=== PATIENT | female | born 2005 | race Caucasian/White ===

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

== ENCOUNTER 2024-03-09 11:00 | Emergency (ER) | payer OTHER, SELFPAY ==
[2024-03-09 11:40] VITALS: BP 122/71; PULSE 97; RESP 16; TEMP 36.4; O2SAT 100; BMI 25.7
--- NOTE | 2024-03-09 11:45 | ED.EXTPRO ---
HPI - Extremity Problem General Chief complaint: Extremity Injury, Upper Stated complaint: Right Pinky Work Injury 03/09/24 History of Present Illness HPI Narrative: Left without comletion of treatment by ED provider. Related Data Previous Rx's ?Medication ?Instructions ?Recorded albuterol sulfate 2.5 mg/3 mL 2.5 mg (3 mL) inhalation Q4-6H PRN 11/06/23 (0.083 %) solution for nebulization shortness of breath or wheezing #75 mL albuterol sulfate 90 mcg/actuation 2 puff inhalation 6XD PRN 11/06/23 aerosol inhaler bronchospasm #6.7 grams azithromycin 250 mg tablet See Rx Instructions PO .COMPLEX #6 11/06/23 tabs benzonatate 200 mg capsule 200 mg PO TID PRN cough 7 days #14 11/06/23 caps prednisone 10 mg tablet 10 mg PO DIRECTED See tapering 11/06/23 #14 tabs Allergies Allergy/AdvReac Type Severity Reaction Status Date / Time No Known Allergies Allergy Verified 03/09/24 11:44 Physical Exam Vital Signs: Vital Signs: Last Vital Signs Temp 97.6 F 03/09/24 11:40 Pulse 97 03/09/24 11:40 Resp 16 03/09/24 11:40 BP 122/71 03/09/24 11:40 Pulse Ox 100 03/09/24 11:40 O2 Del Method Room Air 03/09/24 11:40 BMI result Body Mass Index 25.7 Course Course Course Narrative: RME: Triage written by BREANNE Yao. Patient presents to the ED for right pinky nail almost coming off. ON exam nail and acrylic almost coming off. rest of extremity is normal. Patient states she was grabbing objects from the freezer and her know got caught. Patient to be evaluated in the [facility] Discharge Plan Discharge Clinical Impression: Nail avulsion, finger Patient Disposition: Left W/O Completing Treatment Prescriptions: No Action prednisone 10 mg tablet 10 mg PO DIRECTED Qty: 14 0RF Rx Instructions: see taper instructions Take 4 tablets day 1 and day 2, take 2 tablets day 3 and day 4, take 1 tablet day 5 and day 6 benzonatate 200 mg capsule 200 mg PO TID PRN (Reason: cough) 7 Days Qty: 14 0RF azithromycin 250 mg tablet See Rx Instructions PO .COMPLEX Qty: 6 0RF Rx Instructions: For 250 mg dose pack: take 500 mg today (day 1), then 250 mg for 4 days (days 2-5) albuterol sulfate 90 mcg/actuation HFA aerosol inhaler 2 puff inhalation 6XD PRN (Reason: bronchospasm) Qty: 6.7 0RF albuterol sulfate 2.5 mg /3 mL (0.083 %) solution for nebulization 2.5 mg inhalation Q4-6H PRN (Reason: shortness of breath or wheezing) Qty: 75 0RF Discharge Date/Time: 03/09/24 14:05
== END 2024-03-09 14:05 | disposition left against medical advice (07) ==
LOC: HO.ED 13:05
PROVIDERS: Emergency Provider Emergency Medicine
DX: S69.81XA Other specified injuries of right wrist, hand and finger(s), initial encounter (principal); S69.82XA Other specified injuries of left wrist, hand and finger(s), initial encounter; W23.1XXA Caught, crushed, jammed, or pinched between stationary objects, initial encounter; Y93.89 Activity, other specified; Y92.9 Unspecified place or not applicable; Y99.0 Civilian activity done for income or pay; Z53.21 Procedure and treatment not carried out due to patient leaving prior to being seen by health care provider
CPT/HCPCS: 99281

== ENCOUNTER → 2024-03-09 14:04 | Outpatient (BNVA) | payer OTHER, SELFPAY | PROVIDERS: Visit Provider Physician Assistant Medical | DX: S61.316A Laceration without foreign body of right little finger with damage to nail, initial encounter (principal); X50.3XXA Overexertion from repetitive movements, initial encounter | CPT/HCPCS: 11730; 99202 ==

== ENCOUNTER → 2024-03-11 14:42 | Outpatient (BNVA) | payer OTHER, SELFPAY | PROVIDERS: Visit Provider Physician Assistant Medical | DX: S61.316A Laceration without foreign body of right little finger with damage to nail, initial encounter (principal); X50.3XXA Overexertion from repetitive movements, initial encounter | CPT/HCPCS: 99213 ==

== ENCOUNTER 2024-03-24 22:21 | Emergency (ER) | payer OTHER, SELFPAY ==
[2024-03-24 22:29] VITALS: BP 121/76; PULSE 76; RESP 16; TEMP 36.9; O2SAT 98; BMI 25.7
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
[2024-03-25] MEDS: Ibuprofen 600 MG TABLET PO (00:19)
[2024-03-25 00:30] VITALS: BP 116/62; PULSE 68; RESP 16; TEMP 36.9; O2SAT 98
== END 2024-03-25 00:31 | disposition home or self-care (01) ==
PROVIDERS: Emergency Provider Internal Medicine
DX: S29.012A Strain of muscle and tendon of back wall of thorax, initial encounter (principal); V43.62XA Car passenger injured in collision with other type car in traffic accident, initial encounter; Y93.9 Activity, unspecified; Y92.488 Other paved roadways as the place of occurrence of the external cause; Y99.9 Unspecified external cause status
CPT/HCPCS: 99283

== ENCOUNTER 2024-08-05 14:32 | Emergency (ER) | payer OTHER, SELFPAY ==
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
[2024-08-05 14:36] VITALS: BP 119/68; PULSE 66; RESP 20; TEMP 36.4; O2SAT 100; BMI 23.2
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
[2024-08-05] MEDS: Lidocaine 4 % Patch ADH..PATCH 1 PATCH TRANSDERMA (16:31)
[2024-08-05 16:42] VITALS: BP 108/55; PULSE 57; RESP 16; O2SAT 100
[2024-08-05] MEDS: Acetaminophen 325 MG TABLET 975 MG PO (16:47)
[2024-08-05 17:01] VITALS: BP 108/55; PULSE 57; RESP 18; TEMP 36.4; O2SAT 100
== END 2024-08-05 17:01 | disposition home or self-care (01) ==
PROVIDERS: Emergency Provider Internal Medicine; PCP Internal Medicine
DX: S29.9XXA Unspecified injury of thorax, initial encounter (principal); V43.52XA Car driver injured in collision with other type car in traffic accident, initial encounter; Y93.89 Activity, other specified; Y92.488 Other paved roadways as the place of occurrence of the external cause; Y99.8 Other external cause status; Z79.899 Other long term (current) drug therapy
CPT/HCPCS: 72070; 99283

== ENCOUNTER 2024-09-05 06:21 | Emergency (ER) | payer OTHER, SELFPAY ==
--- NOTE | ~2024-09-05 | XR_ITS ---
EXAMINATION: XR CHEST CLINICAL INFORMATION: Dyspnea COMPARISON: None available. TECHNIQUE: 2 views of the chest were obtained. FINDINGS: Bilateral perihilar prominence with bronchial thickening may reflect infectious/inflammatory etiology though lymphadenopathy in this region is not excluded. No pneumothorax. Trachea is midline. Cardiac mediastinal silhouette is not enlarged. No large pleural effusion. Osseous structures are intact. Soft tissues are unremarkable. XR/XR chest 2V IMPRESSION: Bilateral perihilar prominence with bronchial thickening may reflect infectious/inflammatory etiology though lymphadenopathy in this region is not excluded. Electronically signed by: Dee Fay MD 09/05/2024 07:17 AM EST
[2024-09-05 06:23] VITALS: BP 127/77; PULSE 117; RESP 26; TEMP 36.2; O2SAT 99; BMI 27.8
[2024-09-05 07:03] LABS: MANUAL DIFF FLAG NO
[2024-09-05 07:06] LABS: Basophils Absolute Auto 0.1 X10*3/uL (0.0-0.2); Basophils Percent Auto 0.6 % (0-2); Eosinophils Percent Auto 10.7 % (0-4); Hematocrit 33.7 % (37.0-47.0); Hemoglobin 11.1 g/dl (12.0-16.0); Imm Gran Abs Auto 0.01 X10*3/uL (0.00-0.03); Imm Gran Pct Auto 0.1 % (0.0-0.4); Lymphocytes Absolute Auto 2.8 X10*3/uL (1.2-4.9); Lymphocytes Percent Auto 30.4 % (20-40); Mean Corpuscular HGB Conc 32.9 g/dl (31.0-35.0); Mean Corpuscular Hemoglobin 26.1 pg (27.0-33.0); Mean Corpuscular Volume 79.1 fL (80.0-98.0); Mean Platelet Volume 9.4 fL (9.4-12.3); Monocytes Absolute Auto 0.6 X10*3/uL (0.1-1.2); Monocytes Percent Auto 6.2 % (2-11); Neutrophils Absolute Auto 4.8 x10*3/uL (2.0-8.3); Platelet Count 386 X10*3/uL (160-400); Red Blood Count 4.26 X10*6/uL (4.20-5.50); Red Cell Distribution Width 15.5 % (11.0-16.0); White Blood Count 9.3 X10*3/uL (4.8-10.8)
[2024-09-05] MEDS: methylPREDNISolone Sod Succ 125 MG/2 ML VIAL 60 MG IM (07:21)
--- NOTE | 2024-09-05 07:21 | ED_ITS ---
HPI - SOB/Dyspnea General Chief Complaint: Dyspnea Stated Complaint: SOB Time Seen by Provider: 09/05/24 07:07 Source: patient, RN notes reviewed and old records reviewed Mode of arrival: ambulatory History of Present Illness ED Provider: Odalys Dubon PA-C HPI Narrative: 19-year-old female with past medical history of asthma presenting to the ED complaining of dry cough, SOB, chest tightness x1 week. Has been using albuterol inhaler and nebulizer for 1 week without relief. Also admits to taking 2 days' worth of Prednisone, from left over prescription, 5mg. Admits works in [employer], multiple sick contacts Denies fever, travel, abdominal pain, nausea/vomiting, pedal edema. Related Data Previous Rx's ?Medication ?Instructions ?Recorded albuterol sulfate 2.5 mg/0.5 mL 5 mg inhalation Q4H PRN shortness 09/05/24 solution for nebulization of breath or wheezing #30 ea albuterol sulfate 90 mcg/actuation 2 puff inhalation Q4-6H PRN 09/05/24 aerosol inhaler shortness of breath or wheezing #6.7 grams azithromycin 250 mg tablet See Rx Instructions PO .COMPLEX #6 09/05/24 tabs prednisone 20 mg tablet 40 mg (2 x 20 mg) PO DAILY 5 days 09/05/24 #10 tabs Allergies Allergy/AdvReac Type Severity Reaction Status Date / Time No Known Allergies Allergy Verified 09/05/24 06:25 Review of Systems 2 Review of Systems: Yes all other systems are reviewed and are negative Constitutional: Constitutional: Reports as per [facility] Past Medical History Attestation statement: The following information was validated with the patient. Source: old records reviewed Social History Social History Smoked in Last 30 Days: No Use of substances other than those prescribed or required for medical reasons: No Advance Directives: No Advance Directives Information Provided: No Do you have a plan to hurt others: No Plan Patient : No Physical Exam 2 Vital Signs: Vital Signs: Last Vital Signs Temp 97.1 F 09/05/24 06:23 Pulse 77 09/05/24 07:27 Resp 17 09/05/24 07:27 BP 127/77 09/05/24 06:23 Pulse Ox 99 09/05/24 06:23 O2 Del Method Room Air 09/05/24 06:23 BMI result Body Mass Index 27.8 Const: General: cooperative, healthy appearing and no acute distress O rientation/consciousness: patient oriented x3 Limitations: no limitations HEENT: Head: Yes normal to inspection and Yes atraumatic Ears: hearing grossly normal bilaterally General nose exam: Normal external nose present Face and sinus: Yes normal facial exam Eyes: General: appearance normal, both eyes and all related structures EOM: EOMs intact bilaterally Neck: Neck: Yes normal visual inspection and Yes no meningeal signs Resp: Effort & Inspection: normal respiratory effort and no respiratory distress Auscultation: wheezes expiratory wheezes and throughout Cardio: Rate: regular rate and tachycardic Heart sounds: S1 normal heart sound present and S2 normal heart sound present Skin: Rashes: no rashes Wounds: no wounds Neuro: General: patient oriented x3, tone normal and no meningeal signs C ranial nerves: Yes CN's II-XII intact bilaterally Gait exam (Neuro): Normal gait present Extrem: General: Yes normal to inspection and Yes no pedal edema Course Course Course Narrative: > patient refused IV Solu-Medrol, given IM -0808--labs reassuring. COVID and influenza negative XR chest 2V IMPRESSION: Bilateral perihilar prominence with bronchial thickening may reflect infectious/inflammatory etiology though lymphadenopathy in this region is not excluded. > 0811--on re-evaluation patient reports symptomatic improvement. Lungs CTA. Patient is stable for discharge home at this time Results discussed with patient including worrisome signs and symptoms and strict return precautions, and when to return to the emergency department. They verbalized understanding and feel safe for discharge at this time. Medications Administered Discontinued Medications Generic Name Dose Route Start Last Admin Trade Name Freq PRN Reason Stop Dose Admin Albuterol Sulfate 2.5 mg/ 0 mg 09/05/24 07:27 09/05/24 07:31 Albuterol/Ipratropium 3 ml INHALE 09/05/24 07:28 5 dose ONCE ONE Administration Methylprednisolone Sodium Succinate 60 mg 09/05/24 07:17 09/05/24 07:21 Methylprednisolone Sod Succ 125 Mg/2 Ml Vial IM 09/05/24 07:18 60 mg ONCE ONE Administration Medical Decision Making Medical Decision Making [facility] Narrative: 19-year-old female with past medical history of asthma presenting to the ED complaining of dry cough, SOB, chest tightness x1 week. On exam tachycardic likely from albuterol use [employer], tachypneic, diffuse expiratory wheeze noted, no pedal edema. Concern for asthma exacerbation vs viral illness vs pneumonia/bronchitis. Lower suspicion for ACS/PE or DVT Plan: Labs, viral testing, CXR, ED brown protocol, IV Solu-Medrol Please refer to course for remaining clinical decision making, interpretation of labs/imaging results, and discussions with consultants and/or family members. Differential Diagnosis Differential Diagnoses: The differential diagnosis associated with the presentation includes As above Admission/Observation Consideration of admission/observation: Escalation of care including admission/observation considered Lab Data MDM Lab Attestation statement: I reviewed the patient's lab results. 09/05/24 06:57 09/05/24 06:57 Labs: Lab Results 09/05/24 Range/Units 06:57 WBC 9.3 (4.8-10.8) X10*3/uL RBC 4.26 (4.20-5.50) X10*6/uL Hgb 11.1 L (12.0-16.0) g/dl Hct 33.7 L (37.0-47.0) % MCV 79.1 L (80.0-98.0) fL MCH 26.1 L (27.0-33.0) pg MCHC 32.9 (31.0-35.0) g/dl RDW 15.5 (11.0-16.0) % Plt Count 386 (160-400) X10*3/uL MPV 9.4 (9.4-12.3) fL Immature Gran % (Auto) 0.1 (0.0-0.4) % Neut % (Auto) 52.0 (45-73) % Lymph % (Auto) 30.4 (20-40) % [place] % (Auto) 6.2 (2-11) % Eos % (Auto) 10.7 H (0-4) % Baso % (Auto) 0.6 (0-2) % Lymph # (Auto) 2.8 (1.2-4.9) X10*3/uL [place] # (Auto) 0.6 (0.1-1.2) X10*3/uL Eos # (Auto) 1.0 H (0.0-0.4) X10*3/uL Baso # (Auto) 0.1 (0.0-0.2) X10*3/uL Abs Immat Gran (auto) 0.01 (0.00-0.03) X10*3/uL Absolute Neuts (auto) 4.8 (2.0-8.3) x10*3/uL Absolute Nucleated RBC 0.000 (0.0-0.012) X10*3/uL Nucleated RBC % (auto) 0.0 (0.0-0.2) /100WBC Sodium 140 (135-145) mmol/L Potassium 3.6 (3.3-5.1) mmol/L Chloride 108 (96-108) mmol/L Carbon Dioxide 22 (22-29) mmol/L Anion Gap 14 (12-20) BUN 8 L (9-16) mg/dL Creatinine 0.70 (0.5-1.4) mg/dL Estim Creat Clear Calc 112.0 Estimated GFR > 60 Random Glucose 93 (60-115) mg/dL Calcium 9.1 (8.4-10.2) mg/dL Total Bilirubin 0.5 (0.0-1.0) mg/dL AST 16 (5-31) U/L ALT 9 (0-31) U/L Alkaline Phosphatase 58 (39-117) U/L Total Protein 6.9 (6.5-8.0) g/dL Albumin 3.8 (3.5-5.0) g/dL COVID-19 (RAFIQ) Negative (Negative) COVID-19 Clin Com See Note Influenza Type A (SUNNY) Negative (Negative) Influenza Type B (SUNNY) Negative (Negative) Influenza A & B Note See Note Independent Interpretation I performed an independent interpretation of an: Plain X-Ray Radiology Impression Discussion of test interpretation with radiology: I have reviewed the radiologist's reading. External Record Review External record reviewed: Inpatient record, Office record, Outpatient record, Prior outpatient labs, Prior outpatient radiology, Primary care record and Outside ED record Tests considered The following testing was considered but not selected: As above Prescription Management I considered prescription management with: Antibiotic and Other Chronic Conditions Patient?s care impacted by: Other (Asthma) Social Determinants Patient?s care significantly limited by Social Determinants of Health including: Other Social Determinant of Health Critical Care Time Critical Care Time Critical Care Time: Yes Total Critical Care Time: 40 Attestation: I have personally provided critical care time exclusive of time spent on separately billable procedures. Time includes review of lab data, radiology results, discussion with consultants, and monitoring for potential decompensation. Intervention performed as documented. Discharge Plan Discharge Clinical Impression: Asthma with exacerbation Patient Disposition: Home, Self-Care Instructions: Asthma (DC) Additional Instructions: Your blood work and viral testing was reassuring Your x-ray shows some bronchial wall thickening. Please take prednisone as prescribed until completion In addition azithromycin as an antibiotic Continue to use your inhaler and neb machine at home Follow up with her doctor If symptoms persist or worsen you constant worsening chest pain, shortness of breath or fever unresolved with Tylenol/Motrin return to the ED Prescriptions: New prednisone 20 mg tablet 40 mg PO DAILY 5 Days Qty: 10 0RF albuterol sulfate 90 mcg/actuation HFA aerosol inhaler 2 puff inhalation Q4-6H PRN (Reason: shortness of breath or wheezing) Qty: 6.7 0RF albuterol sulfate 2.5 mg/0.5 mL solution for nebulization 5 mg inhalation Q4H PRN (Reason: shortness of breath or wheezing) Qty: 30 0RF azithromycin 250 mg tablet See Rx Instructions .ROUTE .COMPLEX Qty: 6 0RF Rx Instructions: take 500 mg today (day 1), then 250 mg for 4 days (days 2-5) Referrals: Physician,Unknown J [Primary Care Provider] - 3 days Stand Alone Forms: Work/School Release Print Language: Hebrew
[2024-09-05 07:23] LABS: COVID-19 Test Negative (Negative); IDNOW Serial# 152EDE1D; IDNOW Serial# 58CA691E; Influenza A Negative (Negative); Influenza B2 Negative (Negative)
[2024-09-05 07:24] LABS: Alanine Aminotransferase 9 U/L (0-31); Albumin Level 3.8 g/dL (3.5-5.0); Alkaline Phosphatase 58 U/L (39-117); Anion Gap 14 (12-20); Aspartate Amino Transferase 16 U/L (5-31); Bilirubin Total 0.5 mg/dL (0.0-1.0); Blood Urea Nitrogen 8 mg/dL (9-16); Calcium 9.1 mg/dL (8.4-10.2); Carbon Dioxide 22 mmol/L (22-29); Chloride 108 mmol/L (96-108); Estimated Glomerular Filt Rate > 60; Glucose Random 93 mg/dL (60-115); Potassium 3.6 mmol/L (3.3-5.1); Sodium 140 mmol/L (135-145); Total Protein 6.9 g/dL (6.5-8.0)
[2024-09-05 07:27] VITALS: PULSE 77; RESP 17; O2SAT 96
[2024-09-05] MEDS: Albuterol Sulfate 2.5 MG, Albuterol/Iprat 2.5/0.5MG 3 ML 3 ML INHALE (07:31)
--- NOTE | 2024-09-05 07:32 | PC.NURSE ---
patient medicated per DEC, patient noted to have expiratory wheezing in the upper lobes
--- NOTE | 2024-09-05 08:12 | PC.NURSE ---
patient lungs clear bilat after medication and breathing treatment
[2024-09-05 08:52] VITALS: BP 122/86; PULSE 100; RESP 18; TEMP 36.1; O2SAT 99
[2024-09-05 08:54] VITALS: BP 122/86; PULSE 100; RESP 18; TEMP 36.1; O2SAT 99
== END 2024-09-05 08:54 | disposition home or self-care (01) ==
PROVIDERS: Emergency Provider Emergency Medicine
DX: J45.901 Unspecified asthma with (acute) exacerbation (principal); R06.00 Dyspnea, unspecified; R05.9 Cough, unspecified; R07.89 Other chest pain; Z11.52 Encounter for screening for COVID-19; Z79.899 Other long term (current) drug therapy
CPT/HCPCS: 36415; 71046; 80053; 85025; 87502; 87635; 94640; 99285; J2919

== ENCOUNTER 2024-09-13 09:43 | Emergency (ER) | payer OTHER, SELFPAY ==
--- NOTE | ~2024-09-13 | XR_ITS ---
EXAMINATION: XR CHEST CLINICAL INFORMATION: cough x 1 week COMPARISON: X-ray dated September 05, 2024 TECHNIQUE: 2 views of the chest were obtained. FINDINGS: No consolidation, pleural effusion or pneumothorax. Cardiomediastinal silhouette is normal in size. Osseous structures are intact. XR/XR chest 2V IMPRESSION: No acute airspace disease. Electronically signed by: Dhruv Luo MD 09/13/2024 01:39 PM [facility]
[2024-09-13 09:49] VITALS: BP 117/77; PULSE 110; RESP 14; TEMP 36.9; O2SAT 98; BMI 27.4
[2024-09-13 10:46] LABS: Influenza A PCR NEGATIVE (Negative); Influenza B PCR NEGATIVE (Negative); Resp Syncy Virus RNA Qual PCR NEGATIVE (Negative); SARS COV2 PCR INHOUSE NEGATIVE (Negative)
[2024-09-13 13:00] LABS: IDNOW Serial# 08D9AD1C; Strep A Nucleic Acid Negative (Negative)
--- NOTE | 2024-09-13 14:11 | ED.GENADULT ---
HPI - General Adult General Chief complaint: Upper Respiratory Symptoms Stated complaint: diff breathing Time Seen by Provider: 09/13/24 14:11 Source: patient Mode of arrival: ambulatory Limitations: no limitations History of Present Illness ED Provider: Tanya Juarez PA-C HPI narrative: Patient is a 19 year old assigned female at with a history of asthma presenting to the emergency department today with a persistent cough and wheezing. Patient states that she was seen here on 09/05/2024 for a cough and wheezing. Patient states that she was given prednisone and an antibiotic but the cough and wheezing continues even after finishing those things. Patient states that she continues to use her inhaler and nebulizer at home. Patient states that she does not have a continuing education instructor. Patient denies any dizziness, lightheadedness, abdominal pain, nausea, vomiting, fever, chills, blurry vision, double vision, loss of vision, chest pain, difficulty breathing, shortness of breath, back pain, night sweats, pain with urination, increased urinary frequency, increased urinary urgency, blood in her urine or stool, syncope or a near syncopal episode, recent trauma or falls, bowel incontinence, bladder incontinence, or any other complaints at this time. Relieving factors: none Exacerbating factors: none Associated symptoms: cough Treatments prior to arrival: none Related Data Previous Rx's ?Medication ?Instructions ?Recorded albuterol sulfate 2.5 mg/3 mL 2.5 mg (3 mL) inhalation Q4-6H PRN 11/06/23 (0.083 %) solution for nebulization shortness of breath or wheezing #75 mL albuterol sulfate 90 mcg/actuation 2 puff inhalation 6XD PRN 11/06/23 aerosol inhaler bronchospasm #6.7 grams azithromycin 250 mg tablet See Rx Instructions PO .COMPLEX #6 11/06/23 tabs benzonatate 200 mg capsule 200 mg PO TID PRN cough 7 days #14 11/06/23 caps prednisone 10 mg tablet 10 mg PO DIRECTED See tapering 11/06/23 #14 tabs ibuprofen 600 mg tablet 600 mg PO Q6H PRN fever or pain 03/25/24 #30 tabs cyclobenzaprine 5 mg tablet 5 mg PO Q8H PRN muscle spasm #7 08/05/24 tabs lidocaine 5 % topical patch 1 patch topical DAILY #15 ea 08/05/24 (Lidoderm) albuterol sulfate 2.5 mg/0.5 mL 5 mg inhalation Q4H PRN shortness 09/05/24 solution for nebulization of breath or wheezing #30 ea albuterol sulfate 90 mcg/actuation 2 puff inhalation Q4-6H PRN 09/05/24 aerosol inhaler shortness of breath or wheezing #6.7 grams azithromycin 250 mg tablet See Rx Instructions PO .COMPLEX #6 09/05/24 tabs prednisone 20 mg tablet 40 mg (2 x 20 mg) PO DAILY 5 days 09/05/24 #10 tabs amoxicillin 875 mg-potassium 1 tab PO BID 10 days #20 tabs 09/13/24 clavulanate 125 mg tablet prednisone 20 mg tablet See Rx Instructions .Route 09/13/24 .COMPLEX 12 days #26 tabs Allergies Allergy/AdvReac Type Severity Reaction Status Date / Time No Known Allergies Allergy Verified 09/13/24 09:52 Review of Systems Constitutional: Constitutional: Reports no additional constitutional complaints, Denies chills, Denies fever(s) and Denies night sweats Eyes: Eyes: Reports no additional eye complaints, Denies blurry vision, Denies change in vision, Denies diplopia, Denies eye discharge, Denies loss of vision and Denies eye pain ENT: Denies dizziness Cardiovascular: Cardiovascular: Reports no additional cardiovascular complaints, Denies chest pain, Denies lightheadedness, Denies Loss of Consciousness and Denies dyspnea Respiratory: Respiratory: Reports no additional respiratory complaints, Reports cough, Denies dyspnea and Reports wheezing Gastrointestinal: Gastrointestinal: Reports no additional gastrointestinal complaints, Denies abdominal pain, Denies melena, Denies hematochezia, Denies change in bowel habits and Denies change in stool character Genitourinary: Genitourinary: Denies hematuria, Denies urinary frequency, Denies dysuria, Denies urinary incontinence, Denies urinary hesitancy and Denies urinary urgency Musculoskeletal: Musculoskeletal: Reports no additional musculoskeletal complaints, Denies numbness and Denies tingling Neurologic: Denies dizziness, Denies loss of vision, Denies numbness and Denies tingling Psychiatric: Psychiatric: Reports no additional psychiatric complaints Endocrine: Endocrine: Reports no additional endocrine complaints Hematologic/Lymphatic: Hematologic/Lymphatic: Reports no additional hematologic/lymphatic complaints Allergic/Immunologic: Allergic/Immunologic: Reports no additional allergic/immunologic complaints and Reports wheezing PMFSH Past Medical History Attestation statement: The following information was validated with the patient. Source: old records reviewed and nursing notes reviewed Social History Social History Advance Directives: No Advance Directives Information Provided: No Do you have a plan to hurt others: No Plan Physical Exam ED Vital Signs: Vital Signs - 24 hr 09/13/24 09:49 09/13/24 14:40 09/13/24 15:10 Temperature 98.4 F 98.2 F Pulse Rate 110 H 104 H 106 H Respiratory Rate 14 18 20 Blood Pressure 117/77 125/76 Pulse Oximetry 98 98 Oxygen Delivery Method Room Air Room Air 09/13/24 15:16 Temperature Pulse Rate 106 H Respiratory Rate 18 Blood Pressure Pulse Oximetry Oxygen Delivery Method BMI result Body Mass Index 27.4 Const General: cooperative, no acute distress, alert and awake Nutritional Appearance: well nourished Orientation/consciousness: patient oriented x3 Limitations: no limitations HENMT Head: Yes normal to inspection and Yes atraumatic Ears: hearing grossly normal bilaterally and external ears normal General nose exam: Normal external nose present, no nasal discharge noted and no epistaxis Face and sinus: Yes normal facial exam, No abrasion and No laceration Mouth: Normal oral and palatal mucosa present, no drooling and no muffled voice Eyes General: appearance normal, both eyes and all related structures Periorbital: periorbital findings normal Eyelids: Yes eyelids normal Conjunctivae: conjunctivae normal Pupils: Equal, round and reactive pupils present EOM: EOMs intact bilaterally Neck Neck: Yes normal visual inspection, Yes full ROM and Yes no lymphadenopathy Chest Chest palpation & inspection: normal inspection of the chest Resp Effort & Inspection: normal respiratory effort and able to speak in complete sentences Auscultation: wheezes scattered wheezes GI Inspection: Yes normal to inspection Neuro General: patient oriented x3 and moves all extremities Cranial nerves: Yes Equal, round and reactive pupils present Cognition (Neuro): normal cognition Extrem General: Yes normal to inspection, Yes full ROM and Yes capillary refill normal Psych Appearance: grossly normal Mental Status: mental status grossly normal Affect: normal affect Attitude: cooperative Thought process: Normal thought process present Thought content: Normal thought content present Insight: Good insight present (Psych) Medications Administered Discontinued Medications Generic Name Dose Route Start Last Admin Trade Name Abdirashid PRN Reason Stop Dose Admin Albuterol Sulfate 2.5 mg 09/13/24 15:16 09/13/24 15:21 Albuterol Sulfate (0.083%) 2.5 Mg/3 Ml Vial.Neb INHALE 09/13/24 15:17 2.5 mg ONCE ONE Administration Albuterol Sulfate 5 mg/ 0 mg 09/13/24 14:35 09/13/24 14:40 Albuterol/Ipratropium 3 ml INHALE 09/13/24 14:36 7.5 each ONCE ONE Administration Methylprednisolone Sodium Succinate 60 mg 09/13/24 14:15 09/13/24 14:48 Methylprednisolone Sod Succ 125 Mg/2 Ml Vial IM 09/13/24 14:16 60 mg ONCE ONE Administration Medical Decision Making Medical Decision Making [facility] Narrative: Patient is a 19 year old assigned female at with a history of asthma presenting to the emergency department today with persistent cough and wheezing. Patient's physical exam was as noted in the physical exam portion of this note. Patient's COVID-19, influenza, and RSV tests were negative. Patient's chest x-ray showed no acute process. I explained my physical exam findings as well as all test results to the patient. I answered all questions asked by the patient. Patient received multiple breathing treatments while in the department which, upon re-evaluation, she stated it helped her symptoms significantly. I stressed the importance of the patient taking her medication as directed (either prescribed or as the over the counter packaging recommends). I stressed the importance of the patient following up with her primary care provider and given the multiple presentations for this - a continuing education instructor. I stressed the importance of the patient returning to the emergency department immediately if her symptoms were to worsen or if she were to develop any dizziness, shortness of breath, difficulty breathing, chest pain, blurry vision, loss of vision, nausea, vomiting, abdominal pain, fever, chills, back pain, or any other complaints. Patient verbalized agreement and understanding with this treatment plan and discharge. Differential Diagnosis Differential Diagnoses: The differential diagnosis associated with the presentation includes Asthma exacerbation Wheezing Bronchitis Admission/Observation Consideration of admission/observation: Escalation of care including admission/observation considered Patient would have been admitted to the hospital had her work up had any findings where hospital admission was appropriate and her clinical presentation warranted hospital admission. Lab Data [facility] Lab Attestation statement: I reviewed the patient's lab results. My interpretation of these studies and their corresponding values is that they are grossly normal. Labs: Lab Results 09/13/24 09/13/24 Range/Units 10:05 12:46 Influenza Type A (PCR) NEGATIVE (Negative) Influenza Type B (PCR) NEGATIVE (Negative) RSV RNA Qual (PCR) NEGATIVE (Negative) SARS-CoV-2 RNA (RT-PCR) NEGATIVE (Negative) S. pyogenes GrpA SUNNY Negative (Negative) Independent Interpretation I performed an independent interpretation of an: Plain X-Ray Interpretation: My interpretation is in agreement with the radiologist's impression of this imaging study. EXAMINATION: XR CHEST CLINICAL INFORMATION: cough x 1 week COMPARISON: X-ray dated September 05, 2024 TECHNIQUE: 2 views of the chest were obtained. FINDINGS: No consolidation, pleural effusion or pneumothorax. Cardiomediastinal silhouette is normal in size. Osseous structures are intact. XR/XR chest 2V IMPRESSION: No acute airspace disease. Electronically signed by: Dhruv Luo MD 09/13/2024 01:39 PM [facility] Dictated By: Dhruv Cordero MD Signed By: Electronically signed by Dhruv Fabian MD 09/13/24 1339 Radiology Impression Discussion of test interpretation with radiology: I have reviewed the radiologist's reading. Prescription Management I considered prescription management with: Antibiotic (patient prescribed an antibiotic to cover for PNA) Critical Care Time Critical Care Time Critical Care Time: Yes Total Critical Care Time: 42 Attestation: I spent 42 minutes of Critical Care Time with this patient. This does not include time spent on separately reported billable procedures. Discharge Plan Discharge Clinical Impression: Asthma exacerbation, Bronchitis Patient Disposition: Home, Self-Care Instructions: Asthma (DC), Acute Bronchitis (ED) Additional Instructions: Follow up with your primary care provider and given the extent of your symptoms - a continuing education instructor. Return to the emergency department immediately if your symptoms worsen or if you develop any dizziness, shortness of breath, difficulty breathing, chest pain, blurry vision, loss of vision, nausea, vomiting, abdominal pain, fever, chills, back pain, or any other complaints. Prescriptions: New prednisone 20 mg tablet See Rx Instructions .ROUTE .COMPLEX 12 Days Qty: 26 0RF Rx Instructions: 20 mg orally, Take 3 tablets for 5 days THEN; Take 2 tablets for 4 days THEN; Take 1 tablet for 3 days amoxicillin-pot clavulanate 875-125 mg tablet 1 tab PO BID 10 Days Qty: 20 0RF No Action prednisone 10 mg tablet 10 mg PO DIRECTED Qty: 14 0RF Rx Instructions: see taper instructions Take 4 tablets day 1 and day 2, take 2 tablets day 3 and day 4, take 1 tablet day 5 and day 6 benzonatate 200 mg capsule 200 mg PO TID PRN (Reason: cough) 7 Days Qty: 14 0RF azithromycin 250 mg tablet See Rx Instructions PO .COMPLEX Qty: 6 0RF Rx Instructions: For 250 mg dose pack: take 500 mg today (day 1), then 250 mg for 4 days (days 2-5) albuterol sulfate 90 mcg/actuation HFA aerosol inhaler 2 puff inhalation 6XD PRN (Reason: bronchospasm) Qty: 6.7 0RF albuterol sulfate 2.5 mg /3 mL (0.083 %) solution for nebulization 2.5 mg inhalation Q4-6H PRN (Reason: shortness of breath or wheezing) Qty: 75 0RF cyclobenzaprine 5 mg tablet 5 mg PO Q8H PRN (Reason: muscle spasm) Qty: 7 0RF lidocaine [Lidoderm] 5 % adhesive patch,medicated 1 patch topical DAILY Qty: 15 0RF Rx Instructions: leave on most painful area for up to 12 hrs prednisone 20 mg tablet 40 mg PO DAILY 5 Days Qty: 10 0RF albuterol sulfate 90 mcg/actuation HFA aerosol inhaler 2 puff inhalation Q4-6H PRN (Reason: shortness of breath or wheezing) Qty: 6.7 0RF albuterol sulfate 2.5 mg/0.5 mL solution for nebulization 5 mg inhalation Q4H PRN (Reason: shortness of breath or wheezing) Qty: 30 0RF azithromycin 250 mg tablet See Rx Instructions .ROUTE .COMPLEX Qty: 6 0RF Rx Instructions: take 500 mg today (day 1), then 250 mg for 4 days (days 2-5) ibuprofen 600 mg tablet 600 mg PO Q6H PRN (Reason: fever or pain) Qty: 30 0RF Referrals: [facility] Family Medicine [Provider Group] (Call to establish and follow up with a primary care provider. If you already have a primary care provider, please follow up with them.) [facility] Primary Care, Janny [Provider Group] (Call to establish and follow up with a primary care provider. If you already have a primary care provider, please follow up with them.) [facility] Primary Care,Luiz [Provider Group] (Call to establish and follow up with a primary care provider. If you already have a primary care provider, please follow up with them.) [facility] Pulmonology Services [Provider Group] (Given the extent of your symptoms and need to present to the ER for these symptoms - you should call to establish and follow up with a continuing education instructor. ) Stand Alone Forms: Work/School Release Print Language: Maori
[2024-09-13 14:40] VITALS: PULSE 104; RESP 18; O2SAT 97
[2024-09-13] MEDS: Albuterol Sulfate 5 MG, Albuterol/Iprat 2.5/0.5MG 3 ML 3 ML INHALE (14:40)
[2024-09-13] MEDS: methylPREDNISolone Sod Succ 125 MG/2 ML VIAL 60 MG IM (14:48)
[2024-09-13 15:10] VITALS: BP 125/76; PULSE 106; RESP 20; TEMP 36.8; O2SAT 98
[2024-09-13 15:16] VITALS: PULSE 106; RESP 18; O2SAT 96
[2024-09-13] MEDS: Albuterol Sulfate (0.083%) 2.5 MG/3 ML VIAL.NEB INHALE (15:21)
[2024-09-13 16:49] VITALS: BP 00/00; PULSE 106; RESP 18; TEMP 36.9; O2SAT 95
== END 2024-09-13 16:50 | disposition home or self-care (01) ==
PROVIDERS: Physician Assistant; Emergency Provider Emergency Medicine Emergency Medical Services
DX: J45.901 Unspecified asthma with (acute) exacerbation (principal); J40 Bronchitis, not specified as acute or chronic; Z03.818 Encounter for observation for suspected exposure to other biological agents ruled out
CPT/HCPCS: 0241U; 71046; 87651; 94640; 96372; 99283; 99284; J2919

== ENCOUNTER → 2024-09-13 09:54 | Outpatient (BNV) | payer OTHER, SELFPAY | PROVIDERS: Visit Provider Radiology Diagnostic Radiology | DX: R05.9 Cough, unspecified (principal) | CPT/HCPCS: 71046 ==

== ENCOUNTER → 2024-11-04 01:19 | Outpatient (BNV) | payer OTHER, SELFPAY | PROVIDERS: Visit Provider Radiology Diagnostic Radiology | DX: R05.9 Cough, unspecified (principal) | CPT/HCPCS: 71046 ==

== ENCOUNTER 2024-11-09 13:04 | Outpatient (AMB) | payer OTHER, SELFPAY ==
[2024-11-09 13:19] VITALS: BP 118/62; PULSE 78; O2SAT 99; BMI 28.1
--- NOTE | 2024-11-09 13:19 | A.OFFVIS_ITS ---
Vital Signs 11/09/24 13:19 Height 5 ft 4 in Weight 164 lb BMI 28.1 BP 118/62 Blood Pressure Location Rt brachial Position Sitting Pulse 78 Pulse Source Pulse Oximeter Pulse Oximetry (%) 99 Oxygen Delivery Method Room Air Intake Visit Reasons: Asthma/Bronchitis Failure Analysis Engineer Required: No Floor Attendant: Floor Attendant offered & declined Accompanied by: Self / Same As Patient Allergies No Known Allergies Allergy (Verified 11/09/24 13:24) Medication List - Last Reconciled 11/09/24 by Lizbeth Delgado LPN albuterol sulfate 90 mcg/actuation 2 puffs inhalation 6XD PRN albuterol sulfate 2.5 mg (3 mL) inhalation Q4-6H PRN albuterol sulfate 5 mg inhalation Q4H PRN albuterol sulfate 90 mcg/actuation 2 puffs inhalation Q4-6H PRN albuterol sulfate 90 mcg/actuation 2 inhalations inhalation Q4-6H PRN albuterol sulfate 2.5 mg (3 mL) inhalation Q4-6H PRN amoxicillin-pot clavulanate 875-125 mg 1 tab PO BID 10 days azithromycin (Zithromax Z-Kevin) For 250 mg dose pack: take 500 mg today (day 1), then 250 mg for 4 days (days 2-5) azithromycin For 250 mg dose pack: take 500 mg today (day 1), then 250 mg for 4 days (days 2-5) azithromycin take 500 mg today (day 1), then 250 mg for 4 days (days 2-5) benzonatate 200 mg PO TID PRN 7 days cyclobenzaprine 5 mg PO Q8H PRN ibuprofen 600 mg PO Q6H PRN lidocaine 5% (Lidoderm) 1 patch topical DAILY prednisone 10 mg PO DIRECTED prednisone 40 mg (2 x 20 mg) PO DAILY 5 days prednisone 20 mg orally, Take 3 tablets for 5 days THEN; Take 2 tablets for 4 days THEN; Take 1 tablet for 3 days 12 days prednisone 20 mg PO BID HPI HPI Asthma/Bronchitis: Details: Varinder is a pleasant 19-year-old female, never smoker with underlying asthma. She was referred by [facility] for recurrent asthma exacerbations. She was initially seen on 09/05 treated with prednisone, azithromycin and albuterol with suboptimal effect. She was then seen again on 09/13 for persistent symptoms treated with Augmentin and a 12 day taper of prednisone starting at 60 mg. On 11/04 symptoms continued and she was treated with a Z-Kevin and prednisone x5 days. During these visits chest x-rays were unremarkable and respiratory panels were negative. There was note of significantly elevated eosinophils 10.7 on 09/05. 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 She reports prior dx of severe asthma since childhood, requiring intubation on one occasion. She continues to report dyspnea on exertion, chest tightness, wheezing and dry cough. She was under the care of pulmonary in the past however lost to follow up. She has been trialed on multiple inhalers however discontinued due to recurrent thrush. She has been using albuterol MDI/nebs frequently. She endorses seasonal allergies, no recent allergy testing. She had allergy testing 7 years ago, positive for multiple allergens and recommended allergen immunotherapy but did not pursue. She was also on singulair in the past however felt minimal effect. She has been using benadryl BID with good effect for persistent sinus symptoms. She has two cats at home, new in the past year. She denies any pertinent family history. [facility] Social History Alcohol intake: current Alcohol intake frequency: holidays/special occasions only Substance Use Type: Marijuana Review of Systems Const Denies chills, Denies excessive sweating, Denies fever(s) and Denies night sweats Eyes Denies dry eyes, Denies irritation and Denies itchy eyes ENT Reports Normal hearing present and Denies sore throat Card Denies chest pain, Denies chest pain at rest, Denies chest pain with activity, Denies claudication, Denies leg edema, Denies orthopnea and Denies paroxysmal nocturnal dyspnea Resp Denies chest congestion, Denies excessive phlegm production, Denies pain on inspiration, Denies pain with cough and Denies stridor Musc Denies myalgias Neuro Reports Normal hearing present Endo Denies excessive sweating Magdaleno/Lymph Denies lymphadenopathy Aller/Immun Denies itchy eyes and Denies seasonal rhinorrhea Physical Exam Vital Signs: Last Vital Signs Pulse 78 11/09/24 13:19 BP 118/62 11/09/24 13:19 Pulse Ox 99 11/09/24 13:19 Oxygen Delivery Method Room Air 11/09/24 13:19 BMI result Body Mass Index 28.1 Const General: cooperative, healthy appearing, comfortable, no acute distress, well developed and alert Orientation/consciousness: patient oriented x3 Limitations: no limitations HEENT Head: Yes normal to inspection, Yes normocephalic and Yes atraumatic Ears: hearing grossly normal bilaterally and external ears normal Eyes General: appearance normal, both eyes and all related structures Eyelids: Yes eyelids normal Sclerae: sclerae normal EOM: EOMs intact bilaterally Neck Neck: Yes normal visual inspection and Yes no lymphadenopathy Lymphatic: no lymphadenopathy noted Chest Chest palpation & inspection: normal inspection of the chest Resp Effort & Inspection: normal respiratory effort, able to speak in complete sentences, no audible wheezes, no cough, no stridor, not tachypneic, no tripod positioning and no use of accessory muscles Auscultation: clear to auscultation bilaterally Cardio Jugular venous distension: no JVD Rate: regular rate Rhythm: regular rhythm Skin Other: warm, dry General skin exam: no rashes or lesions noted Neuro General: patient oriented x3 Cranial nerves: Yes Normal hearing present Cognition (Neuro): normal cognition Gait exam (Neuro): Normal gait present Extrem General: Yes normal to inspection, Yes capillary refill normal, Yes no clubbing, cyanosis or edema and Yes no pedal edema Psych Appearance: grossly normal and well kempt Speech and movement: Normal speech and movement present and Clear speech present Affect: normal affect Attitude: cooperative Thought process: Normal thought process present Thought content: Normal thought content present Insight: Good insight present (Psych) Judgement: Good judgement present (Psych) Assessment & Plan Assessment & Plan (1) Asthma: Code(s): J45.909 - Unspecified asthma, uncomplicated Category: Medical (2) Environmental allergies: Code(s): Z91.09 - Other allergy status, other than to drugs and biological substances Category: Medical (3) Eosinophilia: Code(s): D72.10 - Eosinophilia, unspecified Category: Medical Plan Varinder presents for pulmonary evaluation after multiple ED visits and prior h/o severe asthma, likely eosinophilis playing a role in symptoms. Will empirically start on Symbicort 160 mcg 2 inhalations BID. Discussed importance of good oral hygiene to prevent thrush. Advised to start daily antihistamine, avoiding benadryl. Will attempt to send abril, she is aware this may not be covered by insurance. Will send for PFT and RAST to assess for an allergic component. Today is the last day of prednisone, she is aware if symptoms worsen once d/c to call office. All questions were answered and patient is in agreement plan. Will follow-up in 6-8 weeks or sooner if needed. Orders: Orders Resp Allergy Profile Region I Today Z91.09 - Other allergy status, other than to drugs and biological substances Immunoglobulin E Today Z91.09 - Other allergy status, other than to drugs and biological substances PFT pulmonary function test Today J45.909 - Unspecified asthma, uncomplicated Medications: New fexofenadine (Abril Allergy) 180 mg PO DAILY 30 tabs 3RF budesonide-formoterol 160-4.5 mcg/actuation (Symbicort) 2 puffs inhalation Q12H 10.2 grams 3RF Discontinued albuterol sulfate Discontinued Reason: Patient Completed Course 5 mg inhalation Q4H PRN 30 ea 0RF shortness of breath or wheezing Coding Level of Care Code New Pt Level 4 (22783) Diagnoses Asthma J45.909 Environmental allergies Z91.09 Eosinophilia D72.10
== END 2024-11-09 13:49 | disposition home or self-care (01) ==
PROVIDERS: PCP Internal Medicine; Referring Provider Emergency Medicine Emergency Medical Services; Visit Provider Nurse Practitioner Family
DX: J45.909 Unspecified asthma, uncomplicated (principal); Z91.09 Other allergy status, other than to drugs and biological substances; D72.10 Eosinophilia, unspecified
CPT/HCPCS: 99204

== ENCOUNTER 2024-11-09 13:52 | Outpatient (REF) | payer OTHER, SELFPAY ==
[2024-11-17 21:19] LABS: Class Alternaria alternata 0; Class Aspergillus fumigatus 0; Class Bermuda Grass 0/1; Class Birch 2; Class Cat Dander 4; Class Cladosporium herbarum 0; Class Cockroach 3; Class Common Ragweed 0/1; Class Cottonwood 2; Class Derm. pterony 3; Class Dermatophagoides farinae 3; Class Dog Dander 5; Class Elm 0/1; Class Maple Box Elder 1; Class Mountain Cedar 0/1; Class Mouse Urine Protein 2; Class Mugwort 0/1; Class Oak 3; Class Penicillium crysogenum 0; Class Rough Pigweed 0/1; Class Sheep Sorrel 0; Class Sycamore 0/1; Class Timothy Grass 1; Class Walnut Tree 0/1; Class White Ash 0/1; Class White Mulberry 0; E072-IgE Mouse Urine 1.09 kU/L; G002 IgE Bermuda Grass 0.14 kU/L; I006-IgE Cockroach, German 5.23 kU/L; Immunoglobulin E 647 kU/L (<OR=114); M001 IgE Penicillium chrysogen <0.10 kU/L; M002 - IgE Cladosporium herbar <0.10 kU/L; M003 - IgE Aspergillus fumigat <0.10 kU/L; M006 - IgE Alternaria alternat <0.10 kU/L; T001 IgE Maple/Box Elder 0.53 kU/L; T003 IgE Common Silver Birch 0.84 kU/L; T006 - IgE Cedar, Mountain 0.23 kU/L; T007 - IgE Oak, White 4.72 kU/L; T008 IgE Elm, American 0.17 kU/L; T010 - IgE Walnut 0.17 kU/L; T011 - IgE Maple Leaf Sycamore 0.15 kU/L; T014 - IgE Cottonwood 0.82 kU/L; T015 - IgE Ash, White 0.18 kU/L; T070 - IgE White Mulberry <0.10 kU/L; W001 - IgE Ragweed, Short 0.13 kU/L; W006 - IgE Mugwort 0.18 kU/L; W014 IgE Pigweed, Common 0.19 kU/L; W018 IgE Sheep Sorrel <0.10 kU/L
== END 2024-11-09 13:53 | disposition home or self-care (01) ==
LOC: HO.WFDLDS 13:52
PROVIDERS: Visit Provider Nurse Practitioner Family
DX: Z91.09 Other allergy status, other than to drugs and biological substances (principal)
CPT/HCPCS: 36415; 82785; 86003

== ENCOUNTER 2025-02-05 08:26 | Emergency (ER) | payer OTHER, SELFPAY ==
--- NOTE | ~2025-02-05 | XR_ITS ---
CLINICAL HISTORY: cough 2 views chest Comparison: CR - XR CHEST 2V - 11/04/24 01:33 EST Findings: Cardiac and mediastinal contours are normal. Mild interstitial prominence with scattered peribronchial thickening. No focal consolidation. No effusion. No pneumothorax. No acute osseous finding. Impression: Mild interstitial prominence with scattered peribronchial thickening. No focal consolidation. This document has been electronically signed by: Josef Anderson MD on 02/05/2025 09:05:36
[2025-02-05 08:28] VITALS: BP 133/83; PULSE 105; RESP 18; TEMP 36.2; O2SAT 96; BMI 29.5
--- NOTE | 2025-02-05 08:55 | ED_ITS ---
HPI - General Adult General Chief complaint: Upper Respiratory Symptoms Stated complaint: Asthma, cant breathe Time Seen by Provider: 02/05/25 08:39 Source: patient Mode of arrival: ambulatory Limitations: no limitations History of Present Illness ED Provider: Rosi Trujillo DO HPI narrative: 20 year old female with PMHx of asthma and many encounters of asthma exacerbation presents to the ED for shortness of breath and difficulty breathing for the past week but felt significantly worse today. She states she took 20mg of prednisone, benzonite, 2 puffs of rescue inhaler, and 1 nebulizer treatment this morning without effect. She reports she had an appointment with sr. media manager but her appointment was canceled due to insurance issues and her montelukast inhaler was discontinued due to this issue as well. She is currently not on a daily maintenance inhaler at this time. Denies fevers, chills, nausea, vomiting. MD complaint: asthma exacerbation Onset (ago): month(s) Location: chest (lungs) Radiation: non-radiation Severity: moderate Quality: constant Pain Consistency: intermittent Relieving factors: none Exacerbating factors: none Associated symptoms: denies other symptoms Treatments prior to arrival: other (20mg prednisone, benzonite,2 puffs rescue inhaler, nebulizer tx) Related Data Previous Rx's ?Medication ?Instructions ?Recorded albuterol sulfate 2.5 mg/3 mL 2.5 mg (3 mL) inhalation Q4-6H PRN 11/06/23 (0.083 %) solution for nebulization shortness of breath or wheezing #75 mL albuterol sulfate 90 mcg/actuation 2 puff inhalation 6XD PRN 11/06/23 aerosol inhaler bronchospasm #6.7 grams azithromycin 250 mg tablet See Rx Instructions PO .COMPLEX #6 11/06/23 tabs benzonatate 200 mg capsule 200 mg PO TID PRN cough 7 days #14 11/06/23 caps prednisone 10 mg tablet 10 mg PO DIRECTED See tapering 11/06/23 #14 tabs ibuprofen 600 mg tablet 600 mg PO Q6H PRN fever or pain 03/25/24 #30 tabs cyclobenzaprine 5 mg tablet 5 mg PO Q8H PRN muscle spasm #7 08/05/24 tabs lidocaine 5 % topical patch 1 patch topical DAILY #15 ea 08/05/24 (Lidoderm) albuterol sulfate 90 mcg/actuation 2 puff inhalation Q4-6H PRN 09/05/24 aerosol inhaler shortness of breath or wheezing #6.7 grams azithromycin 250 mg tablet See Rx Instructions PO .COMPLEX #6 09/05/24 tabs prednisone 20 mg tablet 40 mg (2 x 20 mg) PO DAILY 5 days 09/05/24 #10 tabs amoxicillin 875 mg-potassium 1 tab PO BID 10 days #20 tabs 09/13/24 clavulanate 125 mg tablet prednisone 20 mg tablet See Rx Instructions .Route 09/13/24 .COMPLEX 12 days #26 tabs albuterol sulfate 2.5 mg/3 mL 2.5 mg (3 mL) inhalation Q4-6H PRN 11/04/24 (0.083 %) solution for nebulization shortness of breath or wheezing #90 mL albuterol sulfate 90 mcg/actuation 2 inh inhalation Q4-6H PRN 11/04/24 breath activated powder shortness of breath or wheezing #1 inhaler,sensor ea azithromycin 250 mg tablet See Rx Instructions PO .COMPLEX #6 11/04/24 (Zithromax Z-Kevin) tabs prednisone 20 mg tablet 20 mg PO BID #10 tabs 11/04/24 budesonide-formoterol HFA 160 2 puff inhalation Q12H #10.2 grams 11/09/24 mcg-4.5 mcg/actuation aerosol inhaler (Symbicort) fexofenadine 180 mg tablet 180 mg PO DAILY #30 tabs 11/09/24 (Stephanie Allergy) montelukast 10 mg tablet 10 mg PO BEDTIME #30 tabs 12/01/24 (Singulair) fluticasone 100 mcg-salmeterol 50 1 inh inhalation BID #60 ea 02/05/25 mcg/dose blistr powdr for inhalation (Wixela Inhub) montelukast 10 mg tablet 10 mg PO BEDTIME #30 tabs 02/05/25 prednisone 20 mg tablet 40 mg (2 x 20 mg) PO DAILY 5 days 02/05/25 #10 tabs Allergies Allergy/AdvReac Type Severity Reaction Status Date / Time No Known Allergies Allergy Verified 02/05/25 08:29 Review of Systems Review of Systems: Constitutional : No Fever, No Chills ENT/Mouth : No Hoarseness, No sore throat, No Rhinorrhea Eyes: No Redness, No Discharge, No Vision Changes Cardiovascular : No Chest Pain, positive SOB, positive Dyspnea on Exertion, No Edema Respiratory : positive Cough, No Sputum, positive Wheezing, Gastrointestinal : No Nausea, No Vomiting, No Diarrhea, No abdominal Pain Genitourinary : No Dysuria, No Hematuria Musculoskeletal : No joint pain, No Myalgias Skin : No rash Neuro : No Weakness, No Numbness, No Headache Psych : No anxiety, depression Heme/Lymph: No Bruising, No Bleeding Endocrine : No Polyuria, No Polydipsia All other systems reviewed and are negative FOR[facility], [facility] Past Medical History Attestation statement: The following information was validated with the patient. Source: old records reviewed Medical History Eosinophilia Asthma Social History Social History Alcohol intake: current Alcohol intake frequency: holidays/special occasions only Patient Tobacco Use Status: Never used Tobacco Smoked in Last 30 Days: No Use of substances other than those prescribed or required for medical reasons: No Substance Use Type: Marijuana Advance Directives: No Advance Directives Information Provided: No Do you have a plan to hurt others: No Plan Patient : No Physical Exam ED Vital Signs: Vital Signs - 24 hr 02/05/25 08:28 02/05/25 08:58 02/05/25 10:24 Temperature 97.2 F 98.3 F Pulse Rate 105 H 121 H 128 H Respiratory Rate 18 24 H 18 Blood Pressure 133/83 123/72 Pulse Oximetry 96 99 Oxygen Delivery Method Room Air Room Air 02/05/25 10:45 02/05/25 11:37 Temperature Pulse Rate Respiratory Rate 20 Blood Pressure Pulse Oximetry 98 98 Oxygen Delivery Method Room Air Room Air BMI result Body Mass Index 29.5 Appearance: Alert. Oriented X3. No acute distress. Eyes: Pupils equal, round and reactive to light. ENT: Pharynx normal. Neck: Normal inspection. Neck supple. CVS: tachycardic rate with normal rhythm. Pulses normal. Respiratory: No respiratory distress. inspiratory and expiratory wheezing. Prolonged expiratory phase Abdomen: Soft and nontender. Skin: Skin warm and dry. Normal skin color. Normal skin turgor. Extremities: No lower extremity edema. No calf ttp Neuro: Oriented X 3. No motor deficit. No sensory deficit. CN2-12 intact Course Course Course Narrative: 09:15- patient tachycardic at 155bpm after xopenex treatment, complaining she is sweating, and left arm tingling. Giving fluids, .5mg ativan and EKG. Reevaluation(s) Reevaluation #1: she is starting to feel better lungs are CTAB no further wheezing will continue to monitor 02/05/25 [id number] Medications Administered Discontinued Medications Generic Name Dose Route Start Last Admin Trade Name Freq PRN Reason Stop Dose Admin Magnesium Sulfate 2 gm in 50 mls @ 150 mls/hr 02/05/25 08:57 02/05/25 09:27 Magnesium Sulfate/H2o IV 02/05/25 09:16 Infused ONCE ONE Infusion Sodium Chloride 1,000 mls @ 999 mls/hr 02/05/25 09:18 02/05/25 10:43 Ns IV 02/05/25 10:18 Infused .Q1H1M ONE Infusion Levalbuterol HCl 3.75 mg 02/05/25 08:57 02/05/25 09:03 Levalbuterol Hcl 1.25 Mg/3 Ml Vial.Neb INHALE 02/05/25 08:58 3.75 mg ONCE ONE Administration Lorazepam 0.5 mg 02/05/25 09:18 02/05/25 09:27 Lorazepam 2 Mg/Ml Vial IVPUSH 02/05/25 09:19 0.5 mg STAT STA Administration Methylprednisolone Sodium Succinate 60 mg 02/05/25 08:57 02/05/25 09:06 Methylprednisolone Sod Succ 125 Mg/2 Ml Vial IVPUSH 02/05/25 08:58 60 mg ONCE ONE Administration Medical Decision Making Medical Decision Making [facility] Narrative: 20 year old female with PMHx of asthma and many encounters of asthma exacerbation presents to the ED for shortness of breath and difficulty breathing for the past week but felt significantly worse today. She took 20mg of prednisone, benzonite, 2 puffs of rescue inhaler, and 1 nebulizer treatment this morning without effect. Significant inspiratory/expiratory wheezing with prolonged expiratory phase. Tachycardic at 105BPM. If patient improves will discharge wit singulair and steroid inhaler for daily maintenance. Will obtain chest x-ray and give xopenex treatment by RT. Will give solu-medrol and magnesium for bronchodilation. Differential Diagnosis Differential Diagnoses: The differential diagnosis associated with the presentation includes ashma exacerbtion, viral illness, Admission/Observation Consideration of admission/observation: Escalation of care including admission/observation considered no hypoxia HR 110 but feels much better and no distress she wants to go home she has faint end exp wheezes but mild she is reliable and will follow up as needed Lab Data MDM Lab Attestation statement: I reviewed the patient's lab results. Labs: Lab Results 02/05/25 Range/Units 11:42 Influenza Type A (PCR) NEGATIVE (Negative) Influenza Type B (PCR) NEGATIVE (Negative) RSV RNA Qual (PCR) NEGATIVE (Negative) SARS-CoV-2 RNA (RT-PCR) NEGATIVE (Negative) Independent Interpretation I performed an independent interpretation of an: EKG and Plain X-Ray (no pneumonia) Interpretation: Rate: 138 Rhythm: sinus tach [place]: normal Normal P waves. Normal OMKAR. Normal QRS complex. ST T wave : normal, no KATIE qTC: 451 prior studies: No acute ischemia The study has been interpreted contemporaneously by me. . Radiology Impression Discussion of test interpretation with radiology: I have reviewed the radiologist's reading. External Record Review External record reviewed: Outpatient record Prescription Management I considered prescription management with: Other Chronic Conditions Patient?s care impacted by: Other (asthma ) Critical Care Time Critical Care Time Critical Care Time: Yes Total Critical Care Time: 45 Attestation: Time is exclusive of separately billable procedures. Time includes: direct patient care, patient reassessment, coordination of patient care, interpretation of data (laboratory data, pulse oximetry, chest xrays), review of patient's medical records,and documentation of patient care. IV magnesium for acute bronchospasm Discharge Plan Discharge Clinical Impression: Asthma with acute exacerbation in adult Qualifiers: Asthma severity: moderate Asthma persistence: persistent Qualified Code(s): J45.41 - Moderate persistent asthma with (acute) exacerbation Patient Disposition: Home, Self-Care Instructions: Asthma (ED) Additional Instructions: negative for covid, flu, rsv chest xray normal finish rest of prednisone burst for 4 more days return for any worsening symptoms or concerns rest and stay hydrated reschedule with your sr. media manager Prescriptions: New montelukast 10 mg tablet 10 mg PO BEDTIME Qty: 30 2RF fluticasone propion-salmeterol [Wixela Inhub] 100-50 mcg/dose blister with device 1 inh inhalation BID Qty: 60 2RF Rx Instructions: rinse mouth after prednisone 20 mg tablet 40 mg PO DAILY 5 Days Qty: 10 0RF No Action montelukast [Singulair] 10 mg tablet 10 mg PO BEDTIME Qty: 30 6RF prednisone 10 mg tablet 10 mg PO DIRECTED Qty: 14 0RF Rx Instructions: see taper instructions Take 4 tablets day 1 and day 2, take 2 tablets day 3 and day 4, take 1 tablet day 5 and day 6 benzonatate 200 mg capsule 200 mg PO TID PRN (Reason: cough) 7 Days Qty: 14 0RF azithromycin 250 mg tablet See Rx Instructions PO .COMPLEX Qty: 6 0RF Rx Instructions: For 250 mg dose pack: take 500 mg today (day 1), then 250 mg for 4 days (days 2-5) albuterol sulfate 90 mcg/actuation HFA aerosol inhaler 2 puff inhalation 6XD PRN (Reason: bronchospasm) Qty: 6.7 0RF albuterol sulfate 2.5 mg /3 mL (0.083 %) solution for nebulization 2.5 mg inhalation Q4-6H PRN (Reason: shortness of breath or wheezing) Qty: 75 0RF cyclobenzaprine 5 mg tablet 5 mg PO Q8H PRN (Reason: muscle spasm) Qty: 7 0RF lidocaine [Lidoderm] 5 % adhesive patch,medicated 1 patch topical DAILY Qty: 15 0RF Rx Instructions: leave on most painful area for up to 12 hrs prednisone 20 mg tablet 40 mg PO DAILY 5 Days Qty: 10 0RF albuterol sulfate 90 mcg/actuation HFA aerosol inhaler 2 puff inhalation Q4-6H PRN (Reason: shortness of breath or wheezing) Qty: 6.7 0RF azithromycin 250 mg tablet See Rx Instructions .ROUTE .COMPLEX Qty: 6 0RF Rx Instructions: take 500 mg today (day 1), then 250 mg for 4 days (days 2-5) ibuprofen 600 mg tablet 600 mg PO Q6H PRN (Reason: fever or pain) Qty: 30 0RF prednisone 20 mg tablet See Rx Instructions .ROUTE .COMPLEX 12 Days Qty: 26 0RF Rx Instructions: 20 mg orally, Take 3 tablets for 5 days THEN; Take 2 tablets for 4 days THEN; Take 1 tablet for 3 days amoxicillin-pot clavulanate 875-125 mg tablet 1 tab PO BID 10 Days Qty: 20 0RF albuterol sulfate 90 mcg/actuation aero powdr breath act w/sensor 2 inh inhalation Q4-6H PRN (Reason: shortness of breath or wheezing) Qty: 1 0RF albuterol sulfate 2.5 mg /3 mL (0.083 %) solution for nebulization 2.5 mg inhalation Q4-6H PRN (Reason: shortness of breath or wheezing) Qty: 90 0RF prednisone 20 mg tablet 20 mg PO BID Qty: 10 0RF azithromycin [Zithromax Z-Kevin] 250 mg tablet See Rx Instructions .ROUTE .COMPLEX Qty: 6 0RF Rx Instructions: For 250 mg dose pack: take 500 mg today (day 1), then 250 mg for 4 days (days 2-5) budesonide-formoterol [Symbicort] 160-4.5 mcg/actuation HFA aerosol inhaler 2 puff inhalation Q12H Qty: 10.2 3RF fexofenadine [Stephanie Allergy] 180 mg tablet 180 mg PO DAILY Qty: 30 3RF Stand Alone Forms: Work/School Release Print Language: Egyptian
[2025-02-05 08:58] VITALS: PULSE 121; RESP 24; O2SAT 98
[2025-02-05] MEDS: levalbuterol HCL 1.25 MG/3 ML VIAL.NEB 3.75 MG INHALE (09:03)
[2025-02-05] MEDS: methylPREDNISolone Sod Succ 125 MG/2 ML VIAL 60 MG IVPUSH (09:06)
[2025-02-05] MEDS: Magnesium Sulfate/H2O 2 GM/50 ML PIGGYBACK IV (09:07)
--- NOTE | 2025-02-05 09:15 | PC.NURSE ---
20gIV placed in the left AC - medication administered per provider order. pt receiving breathing tx via RT at this time. pt currently in no apparent respiratory distress. no sob/wob noted. respirations even/unlabored. plan of care ongoing. call larry place within reach.
--- NOTE | 2025-02-05 09:18 | ECG_ITS ---
Test Reason : TACHY Blood Pressure : */* mmHG Vent. Rate : 138 BPM Atrial Rate : 138 BPM P-R Int : 144 ms QRS Dur : 98 ms QT Int : 298 ms P-R-T Axes : 57 51 31 degrees QTcB Int : 451 ms Sinus tachycardia Incomplete right bundle branch block Borderline ECG No previous ECGs available Referred By: Rosi Trujillo Electronically Signed By: Shekhar Oden
[2025-02-05] MEDS: LORazepam 2 MG/ML VIAL 0.5 MG IVPUSH (09:27)
[2025-02-05] MEDS: 0.9 % Sodium Chloride 1,000 ML 999 ML IV (09:29)
--- NOTE | 2025-02-05 09:49 | PC.NURSE ---
pt noted to become anxious/tachycardic/feeling generally unwell while receiving breathing tx via RT. breathing tx discontinued. pt medicated per provider order. ekg obtained/given to provider. pt remains on RA w/o difficulty. no sob/wob noted. respirations even/unlabored. plan of care ongoing. call larry placed within reach.
[2025-02-05 10:24] VITALS: BP 123/72; PULSE 128; RESP 18; TEMP 36.8; O2SAT 99
[2025-02-05 10:45] VITALS: O2SAT 98
[2025-02-05 11:37] VITALS: RESP 20; O2SAT 98
[2025-02-05 12:35] LABS: Influenza A PCR NEGATIVE (Negative); Influenza B PCR NEGATIVE (Negative); Resp Syncy Virus RNA Qual PCR NEGATIVE (Negative); SARS COV2 PCR INHOUSE NEGATIVE (Negative)
[2025-02-05 13:40] VITALS: BP 117/76; PULSE 95; RESP 20; TEMP 36.9; O2SAT 98
== END 2025-02-05 13:45 | disposition home or self-care (01) ==
PROVIDERS: Emergency Provider Emergency Medicine
DX: J45.41 Moderate persistent asthma with (acute) exacerbation (principal); R06.02 Shortness of breath; R00.0 Tachycardia, unspecified; R11.0 Nausea; Z03.818 Encounter for observation for suspected exposure to other biological agents ruled out; Z79.899 Other long term (current) drug therapy
CPT/HCPCS: 0241U; 71046; 93005; 94640; 96361; 96365; 96375; 99284; 99285; J2060; J2919; J3475

== ENCOUNTER → 2025-02-05 08:40 | Outpatient (BNV) | payer OTHER, SELFPAY | PROVIDERS: Emergency Provider Emergency Medicine; Visit Provider Radiology Vascular & Interventional Radiology | DX: R05.9 Cough, unspecified (principal) | CPT/HCPCS: 71046 ==

== ENCOUNTER → 2025-02-05 09:18 | Outpatient (BNV) | payer OTHER, SELFPAY | PROVIDERS: Emergency Provider Emergency Medicine; Visit Provider Internal Medicine Cardiovascular Disease | DX: I45.10 Unspecified right bundle-branch block (principal); R00.0 Tachycardia, unspecified | CPT/HCPCS: 93010 ==

== ENCOUNTER 2025-10-15 14:50 | Emergency (ER) | payer OTHER, SELFPAY ==
--- NOTE | 2025-10-15 16:04 | ED_ITS ---
HPI - SOB/Dyspnea General Chief Complaint: Asthma Stated Complaint: shortness of breathe Time Seen by Provider: 10/15/25 16:08 Source: patient Mode of arrival: ambulatory Limitations: no limitations History of Present Illness ED Provider: Paula Meyer APRN HPI Narrative: 20 yo female with history of asthma, anemia here with complaints of shortness, wheezing, cough Which occurred prior to arrival. Patient use her albuterol and took 320 mg tablets of prednisone. She is now feeling much improved. Of note, patient had COVID 5 days ago. Related Data Previous Rx's ?Medication ?Instructions ?Recorded albuterol sulfate 2.5 mg/3 mL 2.5 mg (3 mL) inhalation Q4-6H PRN 11/06/23 (0.083 %) solution for nebulization shortness of breat h or wheezing #75 mL albuterol sulfate 90 mcg/actuation 2 puff inhalation 6 XD PRN 11/06/23 aerosol inhaler bronchospasm #6.7 grams azithromycin 250 mg tablet See Rx Instructions PO .COM PLEX #6 11/06/23 tabs benzonatate 200 mg capsule 200 mg PO TID PRN cough 7 d ays #14 11/06/23 caps prednisone 10 mg tablet 10 mg PO DIRECTED See tap ering 11/06/23 #14 tabs ibuprofen 600 mg tablet 600 mg PO Q6H PRN fever or p ain 03/25/24 #30 tabs cyclobenzaprine 5 mg tablet 5 mg PO Q8H PRN muscle spa sm #7 08/05/24 tabs lidocaine 5 % topical patch 1 patch topical DAILY #15 ea 08/05/24 (Lidoderm) albuterol sulfate 90 mcg/actuation 2 puff inhalation Q 4-6H PRN 09/05/24 aerosol inhaler shortness of breath or wheez ing #6.7 grams azithromycin 250 mg tablet See Rx Instructions PO .COM PLEX #6 09/05/24 tabs prednisone 20 mg tablet 40 mg (2 x 20 mg) PO DAILY 5 days 09/05/24 #10 tabs amoxicillin 875 mg-potassium 1 tab PO BID 10 days #20 tabs 09/13/24 clavulanate 125 mg tablet prednisone 20 mg tablet See Rx Instructions .Route 1 11/13/23 .COMPLEX 12 days #26 tabs albuterol sulfate 2.5 mg/3 mL 2.5 mg (3 mL) inhalation Q4-6H PRN 11/04/24 (0.083 %) solution for nebulization shortness of breat h or wheezing #90 mL albuterol sulfate 90 mcg/actuation 2 inh inhalation Q4 -6H PRN 11/04/24 breath activated powder shortness of breath or wheez ing #1 inhaler,sensor ea azithromycin 250 mg tablet See Rx Instructions PO .COM PLEX #6 11/04/24 (Zithromax Z-Kevin) tabs prednisone 20 mg tablet 20 mg PO BID #10 tabs budesonide-formoterol HFA 160 2 puff inhalation Q12H # 10.2 grams 11/09/24 mcg-4.5 mcg/actuation aerosol inhaler (Symbicort) fexofenadine 180 mg tablet 180 mg PO DAILY #30 tabs (Stephanie Allergy) montelukast 10 mg tablet 10 mg PO BEDTIME #30 tabs (Singulair) fluticasone 100 mcg-salmeterol 50 1 inh inhalation BID #60 ea 02/05/25 mcg/dose blistr powdr for inhalation (Wixela Inhub) montelukast 10 mg tablet 10 mg PO BEDTIME #30 tabs prednisone 20 mg tablet 40 mg (2 x 20 mg) PO DAILY 5 days 02/05/25 #10 tabs albuterol sulfate 90 mcg/actuation 2 inh inhalation Q4 H PRN shortness 10/15/25 breath activated powder inhaler of breath or wheezing #1 ea prednisone 20 mg tablet 40 mg (2 x 20 mg) PO DAILY # 8 tabs 10/15/25 Allergies Allergy/AdvReac Type Severity Reaction Status Date / Time No Known Allergies Allergy Verified 10/15/25 16:08 Review of Systems Review of Systems: Yes all other systems are reviewed and are negative Constitutional: Constitutional: Reports no additional constitutional complaints, Denies body ache(s), Denies chills, Denies fever(s), Denies headache(s) and Denies weakness Eyes: Eyes: Reports no additional eye complaints and Denies change in vision ENT: Reports system reviewed and no additional complaints, except as documented, Denies dizziness, Denies headache(s), Denies nasal congestion, Denies nasal discharge and Denies neck pain Cardiovascular: Cardiovascular: Reports no additional cardiovascular complaints, Denies chest pain, Denies leg edema and Reports dyspnea Respiratory: Respiratory: Reports no additional respiratory complaints, Reports cough, Reports dyspnea and Reports wheezing Gastrointestinal: Gastrointestinal: Reports no additional gastrointestinal complaints, Denies abdominal pain, Denies diarrhea, Denies nausea and Denies vomiting Genitourinary: Genitourinary: Reports no additional female genitourinary complaints and Denies urinary incontinence Musculoskeletal: Musculoskeletal: Reports no additional musculoskeletal complaints, Denies back pain, Denies arthralgias, Denies joint swelling, Denies neck pain, Denies numbness and Denies tingling Integumentary/Breasts: Skin/Breast: Reports system reviewed and no additional complaints, except as docu and Denies rash Neurologic: Reports system reviewed and no additional complaints, except as documented, Denies Abnormal speech present, Denies dizziness, Denies headache(s), Denies numbness, Denies tingling and Denies weakness Allergic/Immunologic: Allergic/Immunologic: Reports wheezing PMFSH Past Medical History Attestation statement: The following information was validated with the patient. Source: old records reviewed and nursing notes reviewed Medical History Eosinophilia Asthma Social History Social History Alcohol intake: current Alcohol intake frequency: holidays/special occasions only Patient Tobacco Use Status: Never used Tobacco Substance Use Type: Marijuana Advance Directives: No Advance Directives Information Provided: No Do you have a plan to hurt others: No Plan Physical Exam Vital Signs: Vital Signs: Last Vital Signs Temp 97.8 F 10/15/25 16:05 Pulse 61 10/15/25 16:05 Resp 18 10/15/25 16:05 BP 133/62 10/15/25 16:05 Pulse Ox 100 10/15/25 16:05 O2 Del Method Room Air 10/15/25 16:05 BMI result Body Mass Index 28.9 Const: General: cooperative, healthy appearing, comfortable and no acute distress Orientation/consciousness: patient oriented x3 Limitations: no limitations HEENT: Head: Yes normal to inspection Ears: hearing grossly normal bilaterally General nose exam: Normal external nose present Face and sinus: Yes normal facial exam Mouth: Normal oral and palatal mucosa present Throat: Yes posterior oropharynx normal Eyes: General: appearance normal, both eyes and all related structures Pupils: Equal, round and reactive pupils present Neck: Neck: Yes normal visual inspection Chest: Chest palpation & inspection: normal inspection of the chest Resp: Effort & Inspection: normal respiratory effort Auscultation: wheezes expiratory wheezes Cardio: Rate: regular rate Rhythm: regular rhythm Peripheral pulses: Peripheral pulses 2+ throughout GI: Inspection: Yes normal to inspection Palpation (GI): Soft to palpation and nontender Auscultation: normal bowel sounds Back/Spine/Pelvis: Thoracic/Lumbar Spine: thoracic and lumbar spine normal to inspection Skin: General skin exam: no rashes or lesions noted Neuro: General: patient oriented x3, no focal motor deficits and normal sensation to monofilament Cranial nerves: Yes Equal, round and reactive pupils present Cognition (Neuro): normal cognition Speech: No Abnormal speech present Gait exam (Neuro): Normal gait present Motor exam (neuro): 5/5 motor strength present throughout Extrem: General: Yes normal to inspection Course Course Course Narrative: Paula Meyer [employer] 10/15 [id number] This is a rapid medical exam. Deferred additional HPI, ROS, PE to primary provider. 20 yo female with history of asthma here after asthma attack which occurred [employer]. Took 60mg prednisone [employer]. Feels better. Medical Decision Making Medical Decision Making [facility] Narrative: 20 yo female with history of asthma, anemia here with complaints of shortness, wheezing, cough Which occurred prior to arrival. Patient use her albuterol and took 320 mg tablets of prednisone. She is now feeling much improved. Of note, patient had COVID 5 days ago. Mild wheezing on exam Vitals are stable. No hypoxia or tachypnea. Patient will be discharged home with refill for albuterol and brief course of prednisone. Reviewed worrisome signs and symptoms when to return to the emergency room. Comfortable plan for discharge home. Differential Diagnosis Differential Diagnoses: The differential diagnosis associated with the presentation includes Asthma exacerbation Admission/Observation Consideration of admission/observation: Escalation of care including admission/observation considered asthma exacerbation with no hypoxia or tachypnea requiring supplemental oxygen and or admission Tests considered The following testing was considered but not selected: no hypoxia or tachypnea requiring CXR Prescription Management I considered prescription management with: Antibiotic Discharge Plan Discharge Clinical Impression: Asthma with acute exacerbation Patient Disposition: Home, Self-Care Instructions: Asthma (ED) Prescriptions: New albuterol sulfate 90 mcg/actuation aerosol powdr breath activated 2 inh inhalation Q4H PRN (Reason: shortness of breath or wheezing) Qty: 1 0RF prednisone 20 mg tablet 40 mg PO DAILY Qty: 8 0RF No Action montelukast [Singulair] 10 mg tablet 10 mg PO BEDTIME Qty: 30 6RF prednisone 10 mg tablet 10 mg PO DIRECTED Qty: 14 0RF Rx Instructions: see taper instructions Take 4 tablets day 1 and day 2, take 2 tablets day 3 and day 4, take 1 tablet day 5 and day 6 benzonatate 200 mg capsule 200 mg PO TID PRN (Reason: cough) 7 Days Qty: 14 0RF azithromycin 250 mg tablet See Rx Instructions PO .COMPLEX Qty: 6 0RF Rx Instructions: For 250 mg dose pack: take 500 mg today (day 1), then 250 mg for 4 days (days 2-5) albuterol sulfate 90 mcg/actuation HFA aerosol inhaler 2 puff inhalation 6XD PRN (Reason: bronchospasm) Qty: 6.7 0RF albuterol sulfate 2.5 mg /3 mL (0.083 %) solution for nebulization 2.5 mg inhalation Q4-6H PRN (Reason: shortness of breath or wheezing) Qty: 75 0RF cyclobenzaprine 5 mg tablet 5 mg PO Q8H PRN (Reason: muscle spasm) Qty: 7 0RF lidocaine [Lidoderm] 5 % adhesive patch,medicated 1 patch topical DAILY Qty: 15 0RF Rx Instructions: leave on most painful area for up to 12 hrs prednisone 20 mg tablet 40 mg PO DAILY 5 Days Qty: 10 0RF albuterol sulfate 90 mcg/actuation HFA aerosol inhaler 2 puff inhalation Q4-6H PRN (Reason: shortness of breath or wheezing) Qty: 6. 7 0RF azithromycin 250 mg tablet See Rx Instructions .ROUTE .COMPLEX Qty: 6 0RF Rx Instructions: take 500 mg today (day 1), then 250 mg for 4 days (days 2-5) ibuprofen 600 mg tablet 600 mg PO Q6H PRN (Reason: fever or pain) Qty: 30 0RF prednisone 20 mg tablet See Rx Instructions .ROUTE .COMPLEX 12 Days Qty: 26 0RF Rx Instructions: 20 mg orally, Take 3 tablets for 5 days THEN; Take 2 tablets for 4 days THEN; Take 1 tablet for 3 days amoxicillin-pot clavulanate 875-125 mg tablet 1 tab PO BID 10 Days Qty: 20 0RF albuterol sulfate 90 mcg/actuation aero powdr breath act w/sensor 2 inh inhalation Q4-6H PRN (Reason: shortness of breath or wheezing) Qty: 1 0RF albuterol sulfate 2.5 mg /3 mL (0.083 %) solution for nebulization 2.5 mg inhalation Q4-6H PRN (Reason: shortness of breath or wheezing) Qty: 90 0RF prednisone 20 mg tablet 20 mg PO BID Qty: 10 0RF azithromycin [Zithromax Z-Kevin] 250 mg tablet See Rx Instructions .ROUTE .COMPLEX Qty: 6 0RF Rx Instructions: For 250 mg dose pack: take 500 mg today (day 1), then 250 mg for 4 days (days 2-5) montelukast 10 mg tablet 10 mg PO BEDTIME Qty: 30 2RF fluticasone propion-salmeterol [Wixela Inhub] 100-50 mcg/dose blister with device 1 inh inhalation BID Qty: 60 2RF Rx Instructions: rinse mouth after prednisone 20 mg tablet 40 mg PO DAILY 5 Days Qty: 10 0RF budesonide-formoterol [Symbicort] 160-4.5 mcg/actuation HFA aerosol inhaler 2 puff inhalation Q12H Qty: 10.2 3RF fexofenadine [Stephanie Allergy] 180 mg tablet 180 mg PO DAILY Qty: 30 3RF Print Language: Polish
[2025-10-15 16:05] VITALS: BP 133/62; PULSE 61; RESP 18; TEMP 36.6; O2SAT 100; BMI 28.9
[2025-10-15 16:20] VITALS: BP 133/62; PULSE 61; RESP 18; TEMP 36.6; O2SAT 100
== END 2025-10-15 16:20 | disposition home or self-care (01) ==
PROVIDERS: Emergency Provider Emergency Medicine
DX: J45.901 Unspecified asthma with (acute) exacerbation (principal); R06.02 Shortness of breath; R05.9 Cough, unspecified; Z79.51 Long term (current) use of inhaled steroids
CPT/HCPCS: 99282; 99283